=== PATIENT | female | born 1985 | race American Indian/Alaskan Native ===

== ENCOUNTER 2017-11-15 21:14 | Emergency (ER) | payer MEDICARE ==
[2017-11-15 23:15] VITALS: BP 100/41
[2017-11-16 00:59] LABS: Hematocrit 32.6 % (30.3-42.9); Hemoglobin 10.3 gm/dl (10.1-14.3); Mean Corpuscular HGB Conc 32 % (30-34); Mean Corpuscular Hemoglobin 26 pg (28-32); Mean Corpuscular Volume 83 fl (79-97); Red Blood Count 3.92 M/mm3 (3.65-5.03)
[2017-11-16 01:03] LABS: Platelet Count 331 K/mm3 (140-440); Red Cell Distribution Width 23.1 % (13.2-15.2)
[2017-11-16 01:09] LABS: Alanine Aminotransferase 10 units/L (7-56); Albumin 4.1 g/dL (3.9-5); BUN/Creatinine Ratio 20; Blood Urea Nitrogen 10 mg/dL (7-17); Calcium 9.4 mg/dL (8.4-10.2); Hemolysis Index 5
[2017-11-16 04:01] LABS: Total Cells Counted 100
[2017-11-16 04:02] LABS: Anisocytosis 1+; Band Neutrophils # (Manual) 1.5 K/mm3; Basophils % (Manual) 0 % (0.0-1.8); Eosinophils % (Manual) 0 % (0.0-4.3); Giant Platelets Rare; Hypochromasia 1+
[2017-11-16 04:03] LABS: Burr Cells Rare
== END 2017-11-16 01:30 | disposition left against medical advice (07) ==
LOC: ED 21:14
DX: O26.891 Other specified pregnancy related conditions, first trimester (principal); Z3A.01 Less than 8 weeks gestation of pregnancy; Z53.21 Procedure and treatment not carried out due to patient leaving prior to being seen by health care provider
CPT/HCPCS: 36415; 80053; 84703; 85007; 85025